=== PATIENT | male | born 1995 | race Caucasian/White ===

== ENCOUNTER 2023-06-09 13:16 | Emergency (ER) | payer MEDICAID ==
[~2023-06-09] VITALS: Ht 167.6 cm; Wt 87.0 kg
[2023-06-09 13:22] VITALS: TEMP 98; O2SAT 100
[2023-06-09 15:43] VITALS: BP 113/67; PULSE 61; RESP 14
== END 2023-06-09 15:45 | disposition home or self-care (01) ==
LOC: ER 13:16
DX: S16.1XXA Strain of muscle, fascia and tendon at neck level, initial encounter (principal); V98.8XXA Other specified transport accidents, initial encounter; Y93.89 Activity, other specified; Y92.89 Other specified places as the place of occurrence of the external cause; Y99.8 Other external cause status
CPT/HCPCS: 99281